=== PATIENT | male | born 1975 | race Caucasian/White ===

== ENCOUNTER 2025-07-24 21:30 | Emergency (ER) | payer BC, SELFPAY ==
--- NOTE | ~2025-07-24 | CT_ITS ---
EXAMINATION: CT abdomen pelvis wo con DATE: 07/24/2025 22:09 INDICATION: Left flank pain TECHNIQUE: Computed tomography (CT) of the abdomen and pelvis was performed without intravenous contrast. The dose-length product was 199.35 mGy-cm. Automated exposure control and iterative reconstruction technique were employed. COMPARISON: None. FINDINGS: There is dependent atelectasis. Lung bases unremarkable. Borderline heart size. The liver, spleen, pancreas, adrenal glands and left kidney are unremarkable. There is a right renal cyst. There is a 2 mm left UVJ stone with mild hydronephrosis. No renal stones. Bladder is decompressed. There are pelvic phleboliths. Nonobstructive bowel gas pattern. There is evidence of sacroiliitis. No acute osseous abnormality. No free air or free fluid. Mild lumbar spondylosis. IMPRESSION: 1. Left UVJ stone measuring 2 mm with mild hydronephrosis. Reviewed, dictated and finalized at location O.
--- NOTE | 2025-07-24 21:43 | ED_ITS ---
HPI - General Adult General Chief complaint: Urogenital-Male Stated complaint: L flank pain, urinary issues Time Seen by Provider: 07/24/25 21:38 History of Present Illness HPI narrative: 50-year-old male presents with left flank pain that started 30 minutes prior to arrival. Patient states pain wraps around to his left lower quadrant of his abdomen. Patient is having nausea. Patient denies any urinary symptoms, fever. Patient has no history of kidney stones. Patient does not take any medications in Onset (ago): minute(s) (Thirty) Associated symptoms: other (Nausea) Related Data Allergies Allergy/AdvReac Type Severity Reaction Status Date / Time No Known Allergies Allergy Verified 07/24/25 21:31 Review of Systems 2 Review of Systems: A 10 system review of systems was completed on the patient and is negative except for what is stated in the HPI. Nursing and ancillary documentation was reviewed. Exam 2 Narrative: GENERAL: Well-appearing, well-nourished, and in no acute distress. HEAD: Normocephalic, atraumatic. EYES: PERRLA and EOMI. ENT: Nares clear, no rhinorrhea or epistaxis. Mucous membranes moist. NECK: Supple. CHEST: Clear to auscultation. No respiratory distress. HEART: Regular rate and rhythm. No murmur heard. Normal peripheral pulses. ABDOMEN: Left CVA tenderness EXTREMITIES: Normal range of motion. No edema. SKIN: Warm, dry, no rash. NEURO: No focal deficits. Alert and oriented x3. PSYCH: Normal mood and affect. Course Course Emergency Course: Order labs urine and CT of abdomen to rule out kidney stones Vital Signs Vital signs: Vital Signs Temperature 36.9 C 07/24/25 23:17 Pulse Rate 63 07/24/25 23:17 Respiratory Rate 17 07/24/25 23:17 Blood Pressure 140/86 07/24/25 23:17 Pulse Oximetry 97 07/24/25 23:17 Oxygen Delivery Room Air 07/24/25 23:17 Temperature 36.9 C 07/24/25 23:19 Pulse Rate 60 07/24/25 23:19 Respiratory Rate 17 07/24/25 23:19 Blood Pressure 140/86 07/24/25 23:19 Pulse Oximetry 97 07/24/25 23:19 Oxygen Delivery Room Air 07/24/25 23:17 Medical Decision Making MDM Narrative Medical decision making narrative: patient has a 2mm left kidney stone. kidney function is normal and pain is under control at this time. will start on flomax and discharge patient home on toradol. will refer to urology Differential Diagnosis Differential Diagnosis: Kidney stone versus UTI Vital Signs Vital Signs: Vital Signs Temperature 36.9 C 07/24/25 23:17 Pulse Rate 63 07/24/25 23:17 Respiratory Rate 17 07/24/25 23:17 Blood Pressure 140/86 07/24/25 23:17 Pulse Oximetry 97 07/24/25 23:17 Oxygen Delivery Room Air 07/24/25 23:17 Temperature 36.9 C 07/24/25 23:19 Pulse Rate 60 07/24/25 23:19 Respiratory Rate 17 07/24/25 23:19 Blood Pressure 140/86 07/24/25 23:19 Pulse Oximetry 97 07/24/25 23:19 Oxygen Delivery Room Air 07/24/25 23:17 Lab Data 07/24/25 21:51 07/24/25 21:51 Labs: Lab Results 07/24/25 Range/Units 21:51 WBC 6.2 (4.5-10.0) K/mm3 RBC 5.17 (4.6-6.20) M/mm3 Hgb 15.9 (14.0-18.0) g/dL Hct 48.0 (42.0-52.0) % MCV 92.8 (80-100) fl MCH 30.8 (26-34) pg MCHC 33.1 (32-36) g/dl RDW 12.4 (11.5-14.5) % Plt Count 237 (150-375) k/mm3 MPV 10.0 (7.4-10.4) fl Immature Gran % (Auto) 0.2 (0-0.5) % Neut % (Auto) 51.6 (45.5-73.1) % Lymph % (Auto) 35.9 (18.3-44.2) % [place] % (Auto) 8.8 H (2.6-8.5) % Eos % (Auto) 2.4 (0-4.4) % Baso % (Auto) 1.1 (0.2-1.2) % Lymph # (Auto) 2.24 (0.9-3.2) K/mm3 [place] # (Auto) 0.6 (0.1-0.6) K/mm3 Eos # (Auto) 0.2 (0-0.3) K/mm3 Baso # (Auto) 0.1 (0.0-0.1) K/mm3 Abs Immat Gran (auto) 0.01 (0.00-0.031) K/mm3 Absolute Neuts (auto) 3.2 (1.3-6.7) K/mm3 Absolute Nucleated RBC 0.000 (0.0-0.012) K/mm3 Nucleated RBC % 0.0 (0.0-0.2) % Sodium 138 (137-145) mmol/L Potassium 4.1 (3.4-5.0) mmol/L Chloride 103 (98-107) mmol/L Carbon Dioxide 25 (22-30) mmol/L Anion Gap 10 (4-12) mmol/L BUN 13 (9-20) mg/dL Creatinine 0.81 (0.7-1.3) mg/dL Estim Creat Clear Calc Not Reportable Estimated GFR > 60 (59 - ) Glucose 104 (65-110) mg/dL Calcium 9.3 (8.4-10.2) mg/dL Total Bilirubin 0.5 (0.2-1.3) mg/dL AST 29 (17-59) U/L ALT 23 (6-50) U/L Alkaline Phosphatase 50 (38-126) U/L Total Protein 7.7 (6.3-8.2) g/dL Albumin 4.5 (3.5-5.1) g/dL Lipase 58 (23-300) U/L Imaging Data Radiologist's impression: 2 mm left uvj with mild fullness of the left collecting system Discharge Plan Discharge Clinical Impression: Kidney stone on left side Patient Disposition: Home Condition: Improved Instructions: Antibiotic Form, Kidney Stones (ED) Additional Instructions: TAKE MEDICATIONS PRESCRIBED RETURN FOR WORSENING SYMPTOMS FOLLOW-UP WITH UROLOGY ON SATURDAY Patient Language: Georgian Prescriptions: New ketorolac 10 mg tablet 10 mg PO Q6H PRN (Reason: pain) Qty: 14 0RF Rx Instructions: maximum total duration of 5 days from all oral, intranasal, or parenteral formulations tamsulosin [Flomax] 0.4 mg capsule 0.4 mg PO DAILY Qty: 7 0RF Follow-up/Referrals: Navid Marcos MD [Physician, Urology] - 2 Days PHYSICIAN,[employer]IL AND G[employer] SPECIALIST [Primary Care Provider, Internal Medicine] Time of Disposition: 00:29
[2025-07-24] MEDS: SODIUM CHLORIDE 0.9% IV 1,000 ML 999 ML IV CONT (21:53)
[2025-07-24] MEDS: ONDANSETRON INJ 4 MG/2 ML VIAL IV PUSH (21:53)
[2025-07-24] MEDS: KETOROLAC 30 MG/ML VIAL (*BKC) IV PUSH (21:53)
[2025-07-24 21:56] LABS: Hematocrit 48.0 % (42.0-52.0); Hemoglobin 15.9 g/dL (14.0-18.0); Immature Granulocyte Percent A 0.2 % (0-0.5); Lymphocytes Absolute Auto 2.24 K/mm3 (0.9-3.2); Mean Corpuscular HGB Conc 33.1 g/dl (32-36); Mean Corpuscular Hemoglobin 30.8 pg (26-34); Mean Corpuscular Volume 92.8 fl (80-100); Nucleated Red Blood Cells Absolute Auto 0.000 K/mm3 (0.0-0.012); Nucleated Red Blood Cells Perc 0.0 % (0.0-0.2); Platelet Count Result 237 k/mm3 (150-375); Red Blood Count 5.17 M/mm3 (4.6-6.20); White Blood Count 6.2 K/mm3 (4.5-10.0)
[2025-07-24 22:09] LABS: Alanine Aminotransferase 23 U/L (6-50); Albumin Level 4.5 g/dL (3.5-5.1); Alkaline Phosphatase 50 U/L (38-126); Anion Gap 10 mmol/L (4-12); Aspartate Amino Transferase 29 U/L (17-59); Bilirubin,Total 0.5 mg/dL (0.2-1.3); Blood Urea Nitrogen 13 mg/dL (9-20); Calcium 9.3 mg/dL (8.4-10.2); Carbon Dioxide 25 mmol/L (22-30); Chloride 103 mmol/L (98-107); Estimated Glomerular Filt Rate > 60; Glucose 104 mg/dL (65-110); Lipase 58 U/L (23-300); Potassium 4.1 mmol/L (3.4-5.0); Sodium 138 mmol/L (137-145); Total Protein 7.7 g/dL (6.3-8.2)
--- NOTE | 2025-07-24 23:06 | PC.NURSE ---
Report received from LISSET Gunter. Assumed care of patient at this time.
[2025-07-24 23:17] VITALS: BP 140/86; PULSE 63; RESP 17; TEMP 36.9; O2SAT 97
[2025-07-24 23:19] VITALS: BP 140/86; PULSE 60; RESP 17; TEMP 36.9; O2SAT 97
[2025-07-25] MEDS: TAMSULOSIN HCL 0.4 MG CAPSULE PO (00:33)
== END 2025-07-25 00:39 | disposition home or self-care (01) ==
PROVIDERS: Emergency Provider Nurse Practitioner Family
DX: N13.2 Hydronephrosis with renal and ureteral calculous obstruction (principal)
CPT/HCPCS: 36415; 74176; 80053; 83690; 85025; 96361; 96374; 96375; 99284; A9270; J1885; J2405; J7030